=== PATIENT | female | born 1955 | race Caucasian/White ===

== ENCOUNTER → 2024-03-10 11:55 | Outpatient (REF) | payer MEDICARE, OTHER, SELFPAY | LOC: DHSLP 11:55 | PROVIDERS: ATTENDING PHYSICIAN Family Medicine | DX: G47.19 Other hypersomnia (principal); R06.83 Snoring | CPT/HCPCS: 95800 ==

== ENCOUNTER → 2024-07-23 13:57 | Outpatient (REF) | payer MEDICARE, OTHER, SELFPAY | LOC: WDC 13:57 | PROVIDERS: ATTENDING PHYSICIAN Nurse Practitioner Family; FAMILY PHYSICIAN Family Medicine | DX: Z12.31 Encounter for screening mammogram for malignant neoplasm of breast (principal) | CPT/HCPCS: 77063; 77067 ==

== ENCOUNTER → 2024-07-31 10:18 | Outpatient (REF) | payer MEDICARE, OTHER, SELFPAY | LOC: PAVMRI 10:18 | PROVIDERS: ATTENDING PHYSICIAN Nurse Practitioner Family; FAMILY PHYSICIAN Family Medicine | DX: M54.17 Radiculopathy, lumbosacral region (principal) | CPT/HCPCS: 72148 ==

== ENCOUNTER → 2024-08-30 10:29 | Outpatient (REF) | payer MEDICARE, OTHER, SELFPAY | LOC: RAD 10:29 | PROVIDERS: ATTENDING PHYSICIAN Nurse Practitioner Family; FAMILY PHYSICIAN Family Medicine | DX: N94.9 Unspecified condition associated with female genital organs and menstrual cycle (principal) | CPT/HCPCS: 76830; 76856 ==